=== PATIENT | female | born 1955 | race Caucasian/White ===

== ENCOUNTER → 2020-09-25 | Outpatient (CLI) | payer MEDICARE, OTHER ==
[~2020-09-25] MED LIST: ASPI-650 PO; CIPR500T3 PO; LISI-167 PO; LOSA50TA14 PO; LOVA40TA2 PO; METO25TA91 PO
== END | disposition home or self-care (01) ==
LOC: RAD 15:51
PROVIDERS: ATTEND Family Medicine
DX: M12.9 Arthropathy, unspecified (principal); M54.9 Dorsalgia, unspecified